=== PATIENT | female | born 1995 | race American Indian/Alaskan Native ===

== ENCOUNTER 2018-12-28 11:56 | Emergency (ER) | payer BC ==
[2018-12-28 12:01] VITALS: BP 110/66
--- NOTE | 2018-12-28 12:02 | Emergency Department Report ---
Blank Doc - Documentation Documentation: 23 y o female presents with constant abd pain that started this morning LMP: 3 weeks ago admits n/v/d labs, ua <MEHUL ROWLAND - Last Filed: 12/28/18 11:59> - Documentation Documentation: A physician and/or other qualified medical personnel has recommended that the patient receive further examination and/or treatment beyond their Medical Screening Exam. The risks and benefits were explained. The patient was informed of their right to emergency care. Patient left before final disposition of their medical condition. This note has been generated by me, Dr. Herlinda Sorensen III, MD, the Professor Of Art History for the emergency department. I have not seen this patient personally. <HERLINDA SORENSEN - Last Filed: 12/31/18 10:27>
[2018-12-28 12:41] LABS: Basophils % (Auto) 0.2 % (0.0-1.8); Eosinophils # (Auto) 0.1 K/mm3 (0.0-0.4); Eosinophils % (Auto) 1.1 % (0.0-4.3); Hematocrit 41.9 % (30.3-42.9); Hemoglobin 13.7 gm/dl (10.1-14.3); Lymphocytes # (Auto) 1.2 K/mm3 (1.2-5.4); Lymphocytes % (Auto) 14.5 % (13.4-35.0); Mean Corpuscular HGB Conc 33 % (30-34); Mean Corpuscular Volume 78 fl (79-97); Monocytes # (Auto) 0.4 K/mm3 (0.0-0.8); Monocytes % (Auto) 5.3 % (0.0-7.3); Platelet Count 149 K/mm3 (140-440); Red Cell Distribution Width 15.4 % (13.2-15.2)
[2018-12-28 12:51] LABS: BUN/Creatinine Ratio 10; Blood Urea Nitrogen 7 mg/dL (7-17); Hemolysis Index 38
--- NOTE | 2018-12-28 13:54 | XRay Report ---
AP ABDOMEN: HISTORY: Abdominal pain. The abdominal gas pattern is unremarkable. No masses or organomegaly is identified and there is no gross evidence of free air or fluid. No significant soft tissue calcifications are noted. IMPRESSION: Unremarkable abdomen.
== END 2018-12-28 16:00 | disposition left against medical advice (07) ==
LOC: ED 11:56
DX: R10.9 Unspecified abdominal pain (principal); R19.7 Diarrhea, unspecified; R11.10 Vomiting, unspecified; Z53.21 Procedure and treatment not carried out due to patient leaving prior to being seen by health care provider
CPT/HCPCS: 36415; 74018; 80048; 82150; 83690; 84703; 85025